=== PATIENT | female | born 1975 | race Caucasian/White ===

== ENCOUNTER → 2018-07-05 20:55 | Outpatient (CLI) | payer OTHER, SELFPAY ==
[2018-07-05 21:21] LABS: Thyroid Stim Hormone (TSH) 0.92 uIU/mL (0.358-3.74)
== END ==
PROVIDERS: Referring Provider Nurse Practitioner; Visit Provider Nurse Practitioner
DX: E03.9 Hypothyroidism, unspecified (principal)
CPT/HCPCS: 84443